=== PATIENT | male | born 1955 | race Caucasian/White ===

== ENCOUNTER 2017-10-24 14:30 | Emergency (ER) | payer SELFPAY ==
--- NOTE | 2017-10-24 15:11 | RAD REPORT ---
EXAM DESCRIPTION: CT - Ct Stroke Brain Wo Cont - 10/24/2017 3:05 pm CLINICAL HISTORY: CVA, acute onset numbness and weakness CLINICAL HISTORY: None. TECHNIQUE: Axial 5 millimeter thick images of the head were obtained without IV contrast. All CT scans are performed using dose optimization technique as appropriate and may include automated exposure control or mA/KV adjustment according to patient size. FINDINGS: No intracranial hemorrhage, mass, or cerebral edema. No cortical edema or sulcal effacemen t. No acute cortical based infarction identified. Atrophy and chronic ischemic changes are mild. Vent ricular size is in proportion to volume loss. No extra-axial fluid collections. Hernandez matter-white ma tter differentiation is preserved. Visualized portions of the mastoid air cells, paranasal sinuses, and orbits are unremarkable. Findings telephoned to doctor Saab 1505 hours. IMPRESSION: No CT evidence of acute intracranial process. Mild atrophy and chronic ischemic change.
[2017-10-24] MEDS ORDERED: ASPIRIN 81 MG CHEWABLE TABLET ONE (15:37)
[2017-10-24] MEDS ORDERED: LABETALOL 20 MG/4ML SYRINGE IV ONE (15:37)
[2017-10-24] MEDS ORDERED: CLOPIDOGREL 75 MG TABLET ONE (15:37)
[2017-10-24 15:38] LABS: Absolute Lymphocytes (CBC) 2.3 K/uL (0.7-4.9); Absolute Monocytes 0.6 K/uL (0.1-1.3); Basophils % 0.7 % (0-1.3); Eosinophils % 2.7 % (0-4.4); Lymphocytes % 31.8 % (15.3-44.8); MCH 34.9 pg (27.0-35.0); MCV 99.2 fL (80-100); MPV 8.6 fL (7.6-11.3); RBC Red Blood Cell Count 4.03 M/uL (4.33-5.43)
[2017-10-24 15:40] LABS: Protime INR 0.91
[2017-10-24 15:52] LABS: Magnesium 1.9 mg/dL (1.8-2.4); Potassium 4.3 mmol/L (3.5-5.1)
--- NOTE | 2017-10-24 16:56 | EDPHYS ---
Physician Documentation [facility] Name: Robbie Marquez Age: 62 yrs Sex: Male : 1955 Arrival Date: 10/24/2017 Time: 14:34 Bed 5 Private MD: Out, [facility] ED Physician Blaise Saab HPI: 10/24 14:57 This 62 yrs old Male presents to ER via Wheelchair with complaints of Blood jr8 Pressure Problem, Numbness. 14:57 The patient presents to the emergency department with paresthesias of the right upper jr8 extremity, right side of the face. Onset: The symptoms/episode began/occurred acutely, today, at 12:00. Context: occurred at work. Associated signs and symptoms: The patient has no apparent associated signs or symptoms. Severity of symptoms: At their worst the symptoms were mild in the emergency department the symptoms have resolved. Patient's baseline: Neuro: alert and fully oriented, Motor: no deficits, Ambulation: walks without assistance, Speech: normal. Current symptoms: Currently, the patient is not experiencing any symptoms. The patient has not experienced similar symptoms in the past. The patient has not recently seen a physician. Patient stated that at 12:00pm today had numbness to right face and right arm. Happened multiple times. Was seen by EMS but declined transfer. Came to ED POV after the third time it happened. Currently asymptomatic with complete resolution of symptoms. Historical: - Allergies: 15:05 Levaquin; sv - PMHx: 15:05 Kidney stones; sv - PSHx: 15:05 None; sv - Immunization history:: Flu vaccine is up to date. - Social history:: Smoking status: Patient uses tobacco products, smokes 1.5 packs per day. - Ebola Screening: : Patient denies travel to an Ebola-affected area in the 21 days before illness onset. ROS: 14:57 Eyes: Negative for injury, pain, redness, and discharge, ENT: Negative for injury, jr8 pain, and discharge, Neck: Negative for injury, pain, and swelling, Cardiovascular: Negative for chest pain, palpitations, and edema, Respiratory: Negative for shortness of breath, cough, wheezing, and pleuritic chest pain, Abdomen/GI: Negative for abdominal pain, nausea, vomiting, diarrhea, and constipation, Back: Negative for injury and pain, MS/Extremity: Negative for injury and deformity, Skin: Negative for injury, rash, and discoloration. 14:57 Neuro: Positive for numbness, of the face and right arm, Negative for altered mental status, dizziness, gait disturbance, headache, hearing loss, loss of consciousness, seizure activity, speech changes, syncope, near syncope, tinnitus, tremor, visual changes, weakness. Exam: 14:57 Eyes: Pupils equal round and reactive to light, extra-ocular motions intact. Lids and jr8 lashes normal. Conjunctiva and sclera are non-icteric and not injected. Cornea within normal limits. Periorbital areas with no swelling, redness, or edema. ENT: Nares patent. No nasal discharge, no septal abnormalities noted. Tympanic membranes are normal and external auditory canals are clear. Oropharynx with no redness, swelling, or masses, exudates, or evidence of obstruction, uvula midline. Mucous membranes moist. Neck: Trachea midline, no thyromegaly or masses palpated, and no cervical lymphadenopathy. Supple, full range of motion without nuchal rigidity, or vertebral point tenderness. No Meningismus. Cardiovascular: Regular rate and rhythm with a normal S1 and S2. No gallops, murmurs, or rubs. Normal PMI, no JVD. No pulse deficits. Respiratory: Lungs have equal breath sounds bilaterally, clear to auscultation and percussion. No rales, rhonchi or wheezes noted. No increased work of breathing, no retractions or nasal flaring. Abdomen/GI: Soft, non-tender, with normal bowel sounds. No distension or tympany. No guarding or rebound. No evidence of tenderness throughout. Back: No spinal tenderness. No costovertebral tenderness. Full range of motion. Skin: Warm, dry with normal turgor. Normal color with no rashes, no lesions, and no evidence of cellulitis. MS/ Extremity: Pulses equal, no cyanosis. Neurovascular intact. Full, normal range of motion. Neuro: Awake and alert, GCS 15, oriented to person, place, time, and situation. Cranial nerves II-XII grossly intact. Motor strength 5/5 in all extremities. Sensory grossly intact. Cerebellar exam normal. Normal gait. Vital Signs: 15:27 BP 189 / 100; Pulse 101; Resp 20; Pulse Ox 96% on R/A; Weight 117.93 kg (R); Height 5 aj1 ft. 9 in. (175.26 cm) (R); Pain 0/10; 15:53 BP 157 / 86; Pulse 79; Resp 18; Pulse Ox 99% ; aj1 16:55 BP 159 / 83; Pulse 79; Resp 20; Pulse Ox 99% on R/A; aj1 17:48 BP 166 / 82; Pulse 82; Resp 18; Pulse Ox 99% ; aj1 15:27 Body Mass Index 38.39 (117.93 kg, 175.26 cm) aj NIH Stroke Scale Scores: 14:57 NIHSS Score: 0 jr8 15:04 NIHSS Score: 0 aj MDM: 15:02 Patient medically screened. [facility] 15:31 ED course: No tPA indicated as symptoms are completely resolved. Most likely TIA at [facility] this time vs hypertensive crisis . 16:51 Data reviewed: vital signs, nurses notes, lab test result(s), EKG, radiologic studies, [facility] CT scan, plain films, and as a result, I will discharge patient. Data interpreted: Pulse oximetry: on room air is 99 %. Interpretation: normal. Counseling: I had a detailed discussion with the patient and/or guardian regarding: the historical points, exam findings, and any diagnostic results supporting the discharge/admit diagnosis, lab results, radiology results, the need for outpatient follow up, a veterinarian small animal, a neurologist, to return to the emergency department if symptoms worsen or persist or if there are any questions or concerns that arise at home. ED course: Patient remains asymptomatic while in ED. No neurology on today. Offered to transfer for neurologic evaluation for suspected TIA. Patient wants to go home despite risks. Will put patient back on statin along with Plavix and aspirin daily. Will f/u with neurology after the weekend. Strict return precautions to come back if symptoms occur again. Patient understood and would follow instructions . 10/24 15:13 Order name: Troponin (emerg Dept Use Only); Complete Time: 16:01 10/24 15:13 Order name: Magnesium; Complete Time: 15:53 10/24 15:13 Order name: Basic Metabolic Panel; Complete Time: 15:53 10/24 15:13 Order name: CBC with Diff; Complete Time: 15:53 [facility] 10/24 15:13 Order name: Protime (+inr); Complete Time: 15:53 10/24 15:13 Order name: Ptt, Activated; Complete Time: 15:53 10/24 15:01 Order name: CT Stroke Brain w/o Contrast; Complete Time: 15:27 10/24 15:13 Order name: Stroke CXR 1 View; Complete Time: 17:07 10/24 15:13 Order name: EKG; Complete Time: 15:13 10/24 15:13 Order name: Accucheck; Complete Time: 15:50 10/24 15:13 Order name: Cardiac monitoring; Complete Time: 15:50 10/24 15:13 Order name: EKG - Nurse/Tech; Complete Time: 15:50 10/24 15:13 Order name: IV Saline Lock; Complete Time: 15:50 10/24 15:13 Order name: Labs collected and sent; Complete Time: 15:51 10/24 15:13 Order name: NPO; Complete Time: 15:51 10/24 15:13 Order name: O2 Per Protocol; Complete Time: 15:51 10/24 15:13 Order name: O2 Sat Monitoring; Complete Time: 15:51 10/24 15:13 Order name: Stroke Swallow Screen; Complete Time: 15:51 Administered Medications: 15:49 Drug: Aspirin Chewable Tablet 324 mg Route: PO; aj1 17:10 Follow up: Response: No adverse reaction aj1 15:49 Drug: PlaVIX 75 mg Route: PO; aj1 17:10 Follow up: Response: No adverse reaction aj1 15:49 CANCELLED (Duplicate Order): Labetalol 10 mg IVP once over 2 mins aj1 15:50 Drug: foLIC Acid 1 mg Route: IVPB; Site: right antecubital; aj1 17:10 Follow up: Response: No adverse reaction aj1 17:49 Follow up: IV Status: Completed infusion aj1 15:50 Drug: Labetalol 10 mg {Note: BP 177/99 HR 88.} Route: IVP; Infused Over: 2 mins; Site: aj right antecubital; 17:11 Follow up: Response: No adverse reaction aj1 16:50 CANCELLED (Physician Discretion): Simvastatin 40 mg PO once 8 17:49 Drug: Atorvastatin 40 mg Route: PO; aj1 17:49 Follow up: Response: No adverse reaction aj1 Disposition: 10/25 06:48 Co-signature as Attending Physician, Blaise Saab MD I agree with the assessment and laurie plan of care. Disposition: 10/24/17 16:55 Discharged to Home. Impression: Transient cerebral ischemic attack, unspecified, Hypertensive Emergency . - Condition is Stable. - Discharge Instructions: Stroke Prevention, Transient Ischemic Attack, Aspirin and Your Heart. - Prescriptions for atorvastatin 40 mg Oral tablet - take 1 tablet by ORAL route once daily; 30 tablet. Plavix 75 mg Oral Tablet - take 1 tablet by ORAL route once daily; 30 tablet. - Medication Reconciliation Form, Thank You Letter, Antibiotic Education, Prescription Opioid Use form. - Follow up: Donell Logan MD; When: 2 - 3 days; Reason: Recheck today's complaints, Continuance of care, Re-evaluation by your physician. - Problem is new. - Symptoms are resolved. - Notes: Once daily 81 mg aspirin NIH Stroke Scale - NIH Stroke Score Date: 10/24/2017 Time: 14:57 Total Score = 0 1a. Level of Consciousness (LOC) - 0(Alert) 1b. Level of Consciousness (LOC) (Year \T\ Age) - 0(Both) 1c. LOC Commands (Open \T\ Closes Eyes/Ship Boat Or Barge Mate) - 0(Both) 2. Best Gaze (Lateral Gaze Paresis) - 0(Normal) 3. Visual Field Loss - 0(No visual loss) 4. Facial Palsy - 0(Normal) 5a. Left Arm: Motor (10-second hold) - 0(No drift) 5b. Right Arm: Motor (10-second hold) - 0(No drift) 6a. Left Leg: Motor (5-second hold - always test supine) - 0(No drift) 6b. Right Leg: Motor (5-second hold - always test supine) - 0(No drift) 7. Limb Ataxia (finger/nose \T\ heel/buckner - test with eyes open) - 0(Absent) 8. Sensory Loss (pinprick arms/legs/face) - 0(Normal) 9. Best Language: Aphasia (description/naming/reading) - 0(No aphasia) 10. Dysarthria (speech clarity - read or repeat words) - 0(Normal) 11. Extinction and Inattention (visual/tactile/auditory/spatial/personal) - 0(No abnormality) Initials: jr8 NIH Stroke Scale - NIH Stroke Score Date: 10/24/2017 Time: 15:04 Total Score = 0 1a. Level of Consciousness (LOC) - 0(Alert) 1b. Level of Consciousness (LOC) (Year \T\ Age) - 0(Both) 1c. LOC Commands (Open \T\ Closes Eyes/Ship Boat Or Barge Mate) - 0(Both) 2. Best Gaze (Lateral Gaze Paresis) - 0(Normal) 3. Visual Field Loss - 0(No visual loss) 4. Facial Palsy - 0(Normal) 5a. Left Arm: Motor (10-second hold) - 0(No drift) 5b. Right Arm: Motor (10-second hold) - 0(No drift) 6a. Left Leg: Motor (5-second hold - always test supine) - 0(No drift) 6b. Right Leg: Motor (5-second hold - always test supine) - 0(No drift) 7. Limb Ataxia (finger/nose \T\ heel/buckner - test with eyes open) - 0(Absent) 8. Sensory Loss (pinprick arms/legs/face) - 0(Normal) 9. Best Language: Aphasia (description/naming/reading) - 0(No aphasia) 10. Dysarthria (speech clarity - read or repeat words) - 0(Normal) 11. Extinction and Inattention (visual/tactile/auditory/spatial/personal) - 0(No abnormality) Initials: ajDeonte Signatures: Dispatcher [employer] EDValentina Leavitt RN RN ajKatt Guzman RN RN sv Anderson, Corey, MD MD cha Roszak, Josh, PA PA jr8 Corrections: (The following items were deleted from the chart) 10/24 15:49 15:49 Labetalol 10 mg IVP once over 2 mins ordered. aj1 aj1 16:50 16:49 Simvastatin 40 mg PO once ordered. jr8 jr8 17:50 16:55 10/24/2017 16:55 Discharged to Home. Impression: Transient cerebral aj1 ischemic attack, unspecified; Hypertensive Emergency . Condition is Stable. Forms are Medication Reconciliation Form, Thank You Letter, Antibiotic Education, Prescription Opioid Use. Follow up: Donell Logan; When: 2 - 3 days; Reason: Recheck today's complaints, Continuance of care, Re-evaluation by your physician. Problem is new. Symptoms are resolved. jr8
--- NOTE | 2017-10-24 16:56 | ER ---
Nurse's Notes [facility] Name: Robbie Marquez Age: 62 yrs Sex: Male : 1955 Arrival Date: 10/24/2017 Time: 14:34 Bed 5 Private MD: Out, [facility] Diagnosis: Transient cerebral ischemic attack, unspecified;Hypertensive Emergency Presentation: 10/24 14:55 Transition of care: patient was not received from another setting of care. Onset of sv symptoms was October 24, 2017 at 12:35. Care prior to arrival: None. 14:55 Method Of Arrival: Wheelchair sv 14:55 Acuity: NOHEMI 2 sv 14:55 Presenting complaint: Patient states: was at work and started having numbness to right sv upper and lower lips and right palm and fingers at 1235. Pt went to his work clinic and said his BP was elevated and BGL. Pt refused ambulance on scene. Pt reports 1st time lasted "seconds" and went away and then the numbness returned to the right palm and fingertips only 2 more times. Pt denies dizziness, SOB or headache. Freight Rate Clerk equal bilaterally, no facial droop, tongue midline. 14:57 Note Code Stroke called. sv 16:55 Initial Sepsis Screen: Does the patient meet any 2 criteria? No. Patient's initial aj1 sepsis screen is negative. Does the patient have a suspected source of infection? No. Patient's initial sepsis screen is negative. 16:56 Risk Assessment: Do you want to hurt yourself or someone else? Patient reports no aj1 desire to harm self or others. Historical: - Allergies: 15:05 Levaquin; sv - PMHx: 15:05 Kidney stones; sv - PSHx: 15:05 None; sv - Immunization history:: Flu vaccine is up to date. - Social history:: Smoking status: Patient uses tobacco products, smokes 1.5 packs per day. - Ebola Screening: : Patient denies travel to an Ebola-affected area in the 21 days before illness onset. Screenin:12 Patient has been NPO before screening. The patient is alert, able to follow commands. aj1 The patient does not exhibit slurred or garbled speech The patient is not exhibiting difficulty speaking. The patient does not exhibit difficulty understanding words. The patient is able to swallow own secretions with no drooling or need for suction. Patient tolerated one teaspoon of water. No drooling, immediate coughing, gurgling, or clearing of the throat was noted. The patient tolerated 90mL of water. No drooling, immediate coughing, gurgling, or clearing of the throat was noted. The patient passed the bedside swallow screening. Oral medications may be given as ordered. Contact Physician for further diet orders. Provider notified of bedside swallow screening results: Ryne VARGHESE. 15:27 Abuse screen: Denies threats or abuse. Denies injuries from another. Nutritional aj1 screening: No deficits noted. Tuberculosis screening: No symptoms or risk factors identified. 16:56 Fall Risk None identified. aj1 Assessment: 14:57 Reassessment: Code stroke called by Surekha Ruffin RN. aj1 14:58 Reassessment: Patient taken to CT escorted by Surekha Hull RN. aj1 15:04 Reassessment: Patient returned to room. HALIMA Hilton at bedside to evaluate patient. aj1 15:08 Reassessment: FSBS 178. aj1 15:12 Reassessment: Bedside swallow screen performed, patient passed bedside swallow screen. aj1 15:15 Reassessment: CXR at bedside. aj1 15:27 General: Appears in no apparent distress. comfortable, Behavior is calm, cooperative, aj1 appropriate for age. Pain: Denies pain. Neuro: Level of Consciousness is awake, alert, obeys commands, Oriented to person, place, time, situation, Freight Rate Clerk are equal bilaterally Moves all extremities. Full function Speech is slurred, Facial symmetry appears normal, Pupils are PERRLA, Intact Reports numbness paresthesias in right hand and mouth that has now resolved. Cardiovascular: Patient's skin is warm and dry. Edema is 3+ to left midcalf, left ankle, left foot, left toes, right midcalf, right ankle, right foot and right toes Rhythm is regular. Respiratory: Airway is patent Respiratory effort is even, unlabored, Respiratory pattern is regular, symmetrical. GI: No signs and/or symptoms were reported involving the gastrointestinal system. : No signs and/or symptoms were reported regarding the genitourinary system. EENT: No signs and/or symptoms were reported regarding the EENT system. Derm: Skin is pink, warm \\T\\ dry. normal. Musculoskeletal: Circulation, motion, and sensation intact. 16:30 Reassessment: Patient appears in no apparent distress at this time. No changes from aj1 previously documented assessment. Patient and/or family updated on plan of care and expected duration. Pain level reassessed. Patient is alert, oriented x 3, equal unlabored respirations, skin warm/dry/pink. 17:47 Reassessment: Patient appears in no apparent distress at this time. No changes from aj1 previously documented assessment. Patient and/or family updated on plan of care and expected duration. Pain level reassessed. Patient is alert, oriented x 3, equal unlabored respirations, skin warm/dry/pink. Vital Signs: 15:27 BP 189 / 100; Pulse 101; Resp 20; Pulse Ox 96% on R/A; Weight 117.93 kg (R); Height 5 aj1 ft. 9 in. (175.26 cm) (R); Pain 0/10; 15:53 BP 157 / 86; Pulse 79; Resp 18; Pulse Ox 99% ; aj1 16:55 BP 159 / 83; Pulse 79; Resp 20; Pulse Ox 99% on R/A; aj1 17:48 BP 166 / 82; Pulse 82; Resp 18; Pulse Ox 99% ; aj1 15:27 Body Mass Index 38.39 (117.93 kg, 175.26 cm) aj1 NIH Stroke Scale Scores: 14:57 NIHSS Score: 0 jr8 15:04 NIHSS Score: 0 aj ED Course: 14:34 Patient arrived in ED. sb2 14:35 Out, of Town is Private Physician. sb2 14:55 Arm band placed on right wrist. sv 14:[address] via wheelchair. sv 15:02 Ryne Lloyd PA is PHCP. jr8 15:02 Blaise Saab MD is Attending Physician. jr8 15:05 Triage completed. sv 15:05 CT Stroke Brain w/o Contrast In Process Unspecified. EDMS 15:08 Inserted saline lock: 20 gauge in right antecubital area, using aseptic technique. tw2 Blood collected. 15:16 Valentina Taylor, RN is Primary Nurse. aj1 15:27 Patient has correct armband on for positive identification. Bed in low position. Call aj1 light in reach. Side rails up X 1. shelter monitor on. Pulse ox on. NIBP on. 15:27 No provider procedures requiring assistance completed. aj1 15:33 Stroke CXR 1 View In Process Unspecified. EDMS 16:54 Donell Logan MD is Referral Physician. jr8 17:48 IV discontinued, intact, bleeding controlled, No redness/swelling at site. Pressure aj1 dressing applied. Administered Medications: 15:49 Drug: Aspirin Chewable Tablet 324 mg Route: PO; aj1 17:10 Follow up: Response: No adverse reaction aj1 15:49 Drug: PlaVIX 75 mg Route: PO; aj1 17:10 Follow up: Response: No adverse reaction aj1 15:49 CANCELLED (Duplicate Order): Labetalol 10 mg IVP once over 2 mins aj1 15:50 Drug: foLIC Acid 1 mg Route: IVPB; Site: right antecubital; aj1 17:10 Follow up: Response: No adverse reaction aj1 17:49 Follow up: IV Status: Completed infusion aj1 15:50 Drug: Labetalol 10 mg {Note: BP 177/99 HR 88.} Route: IVP; Infused Over: 2 mins; Site: aj1 right antecubital; 17:11 Follow up: Response: No adverse reaction aj1 16:50 CANCELLED (Physician Discretion): Simvastatin 40 mg PO once jr8 17:49 Drug: Atorvastatin 40 mg Route: PO; aj1 17:49 Follow up: Response: No adverse reaction aj1 Outcome: 16:55 Discharge ordered by . jr8 17:48 Discharged to home ambulatory. aj1 17:48 Condition: good 17:48 Discharge instructions given to patient, Instructed on discharge instructions, follow up and referral plans. medication usage, Demonstrated understanding of instructions, follow-up care, medications, Prescriptions given X 2. 17:50 Patient left the ED. aj1 NIH Stroke Scale - NIH Stroke Score Date: 10/24/2017 Time: 14:57 Total Score = 0 1a. Level of Consciousness (LOC) - 0(Alert) 1b. Level of Consciousness (LOC) (Year \\T\\ Age) - 0(Both) 1c. LOC Commands (Open \\T\\ Closes Eyes/Pupil Personnel Services Director) - 0(Both) 2. Best Gaze (Lateral Gaze Paresis) - 0(Normal) 3. Visual Field Loss - 0(No visual loss) 4. Facial Palsy - 0(Normal) 5a. Left Arm: Motor (10-second hold) - 0(No drift) 5b. Right Arm: Motor (10-second hold) - 0(No drift) 6a. Left Leg: Motor (5-second hold - always test supine) - 0(No drift) 6b. Right Leg: Motor (5-second hold - always test supine) - 0(No drift) 7. Limb Ataxia (finger/nose \\T\\ heel/buckner - test with eyes open) - 0(Absent) 8. Sensory Loss (pinprick arms/legs/face) - 0(Normal) 9. Best Language: Aphasia (description/naming/reading) - 0(No aphasia) 10. Dysarthria (speech clarity - read or repeat words) - 0(Normal) 11. Extinction and Inattention (visual/tactile/auditory/spatial/personal) - 0(No abnormality) Initials: jr8 NIH Stroke Scale - NIH Stroke Score Date: 10/24/2017 Time: 15:04 Total Score = 0 1a. Level of Consciousness (LOC) - 0(Alert) 1b. Level of Consciousness (LOC) (Year \\T\\ Age) - 0(Both) 1c. LOC Commands (Open \\T\\ Closes Eyes/Pupil Personnel Services Director) - 0(Both) 2. Best Gaze (Lateral Gaze Paresis) - 0(Normal) 3. Visual Field Loss - 0(No visual loss) 4. Facial Palsy - 0(Normal) 5a. Left Arm: Motor (10-second hold) - 0(No drift) 5b. Right Arm: Motor (10-second hold) - 0(No drift) 6a. Left Leg: Motor (5-second hold - always test supine) - 0(No drift) 6b. Right Leg: Motor (5-second hold - always test supine) - 0(No drift) 7. Limb Ataxia (finger/nose \\T\\ heel/buckner - test with eyes open) - 0(Absent) 8. Sensory Loss (pinprick arms/legs/face) - 0(Normal) 9. Best Language: Aphasia (description/naming/reading) - 0(No aphasia) 10. Dysarthria (speech clarity - read or repeat words) - 0(Normal) 11. Extinction and Inattention (visual/tactile/auditory/spatial/personal) - 0(No abnormality) Initials: aj1 Signatures: Dispatcher [employer] EDValentina Leavitt RN RN aj1 Katt Ruffin RN RN sv Ryne Lloyd PA PA jr8 Ila Lopez RN RN tw2 Ellie Hutton 2 Corrections: (The following items were deleted from the chart) 15:07 14:55 Presenting complaint: Patient states: was at work and started having sv numbness to right upper and lower lips and right palm and fingers at 1235. Pt went to his work clinic and said his BP was elevated and BGL. Pt refused ambulance on scene. Pt reports 1st time lasted "seconds" and went away and then the numbness returned to the right palm and fingertips only 2 more times. Pt denies dizziness, SOB or headache. sv 15:23 15:22 Reassessment: Code stroke called by Surekha Ruffin, RN aj1 aj1
[2017-10-24] MEDS ORDERED: ATORVASTATIN 20 MG TAB ONE (17:04)
--- NOTE | 2017-10-24 17:06 | RAD REPORT ---
EXAM DESCRIPTION: RAD - Chest Single View - 10/24/2017 3:34 pm CLINICAL HISTORY: TIA, shortness of breath COMPARISON: None. TECHNIQUE: AP portable chest image was obtained 1514 hours . FINDINGS: Lungs are clear. Heart and vasculature are normal. No measurable pleural effusion and no p neumothorax. No gross bony abnormality seen. No acute aortic findings suspected. IMPRESSION: No acute cardiopulmonary process.
--- NOTE | 2017-10-25 09:30 | EKG ---
Test Date: 2017-10-24 Test Time: 15:32:17 Sports Medicine Trainer: MERCEDEZ MEASUREMENT RESULTS: Intervals: Rate: 90 DE: 100 QRSD: 82 QT: 350 QTc: 428 [place]: P: 98 DE: 100 QRS: 66 T: 57 INTERPRETIVE STATEMENTS: Sinus rhythm with short DE Otherwise normal ECG No previous ECG available for comparison Electronically Signed On 10-25-17 09:28:06 CDT by Carter Mathur
== END 2017-10-24 17:50 | disposition home or self-care (01) ==
LOC: ER 14:30
DX: G45.9 Transient cerebral ischemic attack, unspecified (principal); I16.1 Hypertensive emergency; F17.210 Nicotine dependence, cigarettes, uncomplicated; Z88.1 Allergy status to other antibiotic agents
CPT/HCPCS: 36415; 70450; 71045; 80048; 82962; 83735; 84484; 85025; 85610; 85730; 93005; 96365; 96366; 96375; 99285

== ENCOUNTER 2018-03-18 06:49 | Observation (INO) | payer BC ==
[2018-03-18] MEDS ORDERED: LEVALBUTEROL 1.25 MG/3 ML NEB ONE ×2 (07:15→12:55)
[2018-03-18] MEDS ORDERED: METHYLPREDNISOLONE 125 MG INJ ONE (07:15)
[2018-03-18 07:33] LABS: Absolute Lymphocytes (CBC) 1.5 K/uL (0.7-4.9); Absolute Monocytes 0.6 K/uL (0.1-1.3); Absolute Neutrophil 4.5 K/uL (1.8-8.0); Basophils % 0.8 % (0-1.3); Eosinophils % 3.7 % (0-4.4); Hematocrit 35.7 % (39.6-49.0); Lymphocytes % 21.3 % (15.3-44.8); MCH 34.3 pg (27.0-35.0); Monocytes % 8.7 % (3.3-12.3); RBC Red Blood Cell Count 3.56 M/uL (4.33-5.43)
[2018-03-18 08:09] LABS: ALT/SGPT 57 U/L (12-78); AST/SGOT 53 U/L (15-37); Alkaline Phosphatase 180 U/L (45-117); BUN Blood Urea Nitrogen 44 mg/dL (7-18); Bicarbonate 29 mmol/L (21-32); Bilirubin Direct < 0.1 mg/dL (0-0.2); Bilirubin Total 0.2 mg/dL (0.2-1.0); Glucose Level 86 mg/dL (74-106); Magnesium 2.3 mg/dL (1.8-2.4); NT PRO-BNP 2069 pg/mL (<125); Potassium 4.7 mmol/L (3.5-5.1); Protein, Total 6.8 g/dL (6.4-8.2); Sodium Level 145 mmol/L (136-145); Troponin (Emerg Dept Use Only) < 0.02 ng/mL (0.0-0.045)
[2018-03-18] MEDS ORDERED: IPRATROPIUM BROM 0.5MG/2.5ML ONE ×2 (08:18→12:55)
[2018-03-18] MEDS ORDERED: MAGNESIUM SULFATE 1 gm IVPB 1 GM/100 ML BAG IV ONE (08:18)
--- NOTE | 2018-03-18 08:28 | ER ---
Nurse's Notes [facility] Name: Robbie Marquez Age: 62 yrs Sex: Male : 1955 Arrival Date: 03/18/2018 Time: 06:50 Bed 7 Private MD: Tyler Gandhi E Diagnosis: Chronic obstructive pulmonary disease with (acute) exacerbation;Edema, unspecified;Hypoxemia;anasarca Presentation: 03/18 07:08 Presenting complaint: Patient states: he is having increasingly worse difficulty bb breathing x 2 weeks with new onset of swelling to lower extremities pt has had COPD x 10 years and this is the first time he came to the ED for it. Transition of care: patient was not received from another setting of care. Onset of symptoms was March 07, 2018. Risk Assessment: Do you want to hurt yourself or someone else? Patient reports no desire to harm self or others. Initial Sepsis Screen: Does the patient meet any 2 criteria? No. Patient's initial sepsis screen is negative. Does the patient have a suspected source of infection? No. Patient's initial sepsis screen is negative. Care prior to arrival: None. 07:08 Method Of Arrival: Ambulatory bb 07:08 Acuity: NOHEMI 2 bb Historical: - Allergies: 07:13 Levaquin; bb - Home Meds: 07:13 doxazosin 2 mg oral tab 1 tab once daily [Active]; Janumet XR 50-1,000 mg oral TM24 2 bb tabs once daily [Active]; atorvastatin 20 mg oral tab 1 tab once daily [Active]; aspirin 81 mg Oral chew 1 tab once daily [Active]; Stiolto Respimat 2.5-2.5 mcg/actuation inhalation mist 2 puffs once daily [Active]; Bystolic 10 mg oral tab 1 tab once daily [Active]; losartan-hydrochlorothiazide 100-25 mg oral tab 1 tab once daily [Active]; - PMHx: 07:13 Kidney stones; COPD; Hypertension; Hyperlipidemia; TIA; Diabetes - NIDDM; bb - PSHx: 07:13 None; bb - Immunization history:: Adult Immunizations up to date. - Social history:: Smoking status: Patient uses tobacco products, smokes one-half pack cigarettes per day, Patient uses alcohol, on a daily basis. Patient/guardian denies using street drugs. - Family history:: not pertinent. - Ebola Screening: : No symptoms or risks identified at this time. - Hospitalizations: : No recent hospitalization is reported. Screenin:00 Abuse screen: Denies threats or abuse. Denies injuries from another. Nutritional sv screening: No deficits noted. Tuberculosis screening: No symptoms or risk factors identified. Fall Risk None identified. Assessment: 07:00 General: Appears uncomfortable, obese, well developed, Behavior is calm, cooperative, sv appropriate for age. General: Reports daily ETOH use, pt reports that he drinks 1 glass of liquor daily and recently cut back on his drinking since he had his TIA. Pain: Denies pain. Neuro: Level of Consciousness is awake, alert, obeys commands, Oriented to person, place, time, situation, Moves all extremities. Speech is normal. Cardiovascular: Heart tones S1 S2 present Patient's skin is warm and dry. Pulses are 2+ in right radial artery, right dorsalis pedis artery, left radial artery and left dorsalis pedis artery Edema is 2+ to left midcalf, left ankle, left foot, right midcalf, right ankle and right foot pitting to left midcalf, left ankle, left foot, right midcalf, right ankle and right foot Rhythm is sinus rhythm. Respiratory: Reports shortness of breath at rest on exertion for about 2 weeks labored breathing Airway is patent Respiratory effort is even, labored, Respiratory pattern is symmetrical, tachypnea Breath sounds are diminished in left posterior lower lobe, right posterior middle lobe and right posterior lower lobe Breath sounds with wheezes bilaterally. the patient has moderate shortness of breath. GI: Abdomen is obese, noted to have ascites. : Reports normal urination but urinates every 2 hours. Derm: Skin is pink, warm \T\ dry. Musculoskeletal: Range of motion: intact in all extremities. 07:25 Reassessment: Patient appears in no apparent distress at this time. Patient and/or sv family updated on plan of care and expected duration. Pain level reassessed. Patient is alert, oriented x 3, equal unlabored respirations, skin warm/dry/pink. Respiratory: Reports cough that is non-productive, Breath sounds with wheezes bilaterally. the patient has mild shortness of breath. 08:14 Reassessment: Patient appears in no apparent distress at this time. Patient and/or sv family updated on plan of care and expected duration. Pain level reassessed. Patient is alert, oriented x 3, equal unlabored respirations, skin warm/dry/pink. Mild improvement on wheezing. 10:07 Reassessment: Patient appears in no apparent distress at this time. Patient and/or sv family updated on plan of care and expected duration. Pain level reassessed. Patient is alert, oriented x 3, equal unlabored respirations, skin warm/dry/pink. Patient states symptoms have improved. Vital Signs: 07:13 BP 171 / 119; Pulse 82; Resp 20 S; Temp 97.7(O); Pulse Ox 88% on R/A; Weight 113.4 kg bb (R); Height 5 ft. 9 in. (175.26 cm) (R); Pain 0/10; 07:13 Pulse Ox 96% on 2 lpm NC; bb 07:57 BP 164 / 91; Pulse 92; Resp 22; Pulse Ox 96% on 2 lpm NC; sv 08:51 BP 176 / 85; Pulse 83; Resp 16; Pulse Ox 97% on 2 lpm NC; sv 10:06 BP 158 / 83; Pulse 82; Resp 18; Pulse Ox 97% on 2 lpm NC; sv 07:13 Body Mass Index 36.92 (113.40 kg, 175.26 cm) bb ED Course: 06:50 Patient arrived in ED. es 06:50 Tyler Gandhi MD is Private Physician. es 06:59 Jagdeep Rodriguez MD is Attending Physician. rn 07:00 Patient has correct armband on for positive identification. Placed in gown. Bed in low sv position. Call light in reach. secured entrance monitor on. Pulse ox on. NIBP on. Door closed. Head of bed elevated. Offered blanket to pt but refused at this time.. 07:00 Initial lab(s) drawn, by me, sent to lab. First set of blood cultures drawn by me. sv Inserted saline lock: 20 gauge in left forearm, using aseptic technique. Blood collected. Flushed left forearm with 5 ml normal saline. 07:05 aKtt Ruffin, DANIELLA is Primary Nurse. sv 07:10 Triage completed. bb 07:13 Arm band placed on Patient placed in an exam room, on a stretcher, on oxygen. bb 07:15 Second set of blood cultures drawn by me. sv 07:16 X-ray completed. Portable x-ray completed in exam room. Patient tolerated procedure jb2 well. 07:19 XRAY CXR (1 view) In Process Unspecified. EDMS 07:51 Awaiting lab results, Awaiting radiology results. sv 07:59 EKG done, by neurology tech. reviewed by Jagdeep Rodriguez MD. at1 08:26 Violet Everett MD is Hospitalizing Provider. rn 10:07 No provider procedures requiring assistance completed. Patient admitted, IV remains in sv place. intact. Administered Medications: 07:10 Drug: Xopenex (3) 1.25 mg Route: Inhalation; sv 07:24 Drug: SOLU-Medrol 125 mg Route: IVP; Site: left forearm; sv 07:49 Follow up: Response: No adverse reaction sv 08:14 Drug: AtroVENT Aerosol 0.5 mg Route: Inhalation; sv 08:14 Drug: Magnesium Sulfate 1 grams Route: IVPB; Infused Over: 1 hrs; Site: left forearm; sv 09:11 Follow up: Response: No adverse reaction; IV Status: Completed infusion; IV Intake: sv 100ml Intake: 09:11 IV: 100ml; Total: 100ml. sv Outcome: 08:27 Decision to Hospitalize by Provider. rn 10:17 Admitted to Tele accompanied by tech, via wheelchair, room 217, with oxygen, with sv chart, Report called to Dayanna RN 10:17 Condition: stable 10:17 Instructed on the need for admit. 10:30 Patient left the ED. sv Signatures: Dispatcher [employer] Katt Wiseman RN RN sv Salyer, Edna es Buechter, Jesse jb2 Rhiannon Silvestre RN RN bb Nieto, Roman, MD MD rn Gonzales, Amanda, content strategy lead EKG Tat1
--- NOTE | 2018-03-18 08:28 | EDPHYS ---
Physician Documentation [facility] Name: Robbie Marquez Age: 62 yrs Sex: Male : 1955 Arrival Date: 03/18/2018 Time: 06:50 Bed 7 Private MD: Tyler Gandhi E ED Physician Jagdeep Rodriguez HPI: 03/18 07:14 This 62 yrs old Male presents to ER via Ambulatory with complaints of rn Breathing Difficulty. 07:14 The patient has shortness of breath at rest, with light activity. Onset: The rn symptoms/episode began/occurred 1 week(s) ago. Duration: The symptoms are intermittent. The patient's shortness of breath is aggravated by nothing, is alleviated by nothing. Severity of symptoms: At their worst the symptoms were moderate in the emergency department the symptoms are unchanged. The patient has experienced similar episodes in the past. The patient has not recently seen a physician. Reports 1-2 weeks of increased sob and RICHARDS, + COPD, also reports increased swelling of legs and trouble sleeping flat. . Historical: - Allergies: 07:13 Levaquin; bb - Home Meds: 07:13 doxazosin 2 mg oral tab 1 tab once daily [Active]; Janumet XR 50-1,000 mg oral TM24 2 bb tabs once daily [Active]; atorvastatin 20 mg oral tab 1 tab once daily [Active]; aspirin 81 mg Oral chew 1 tab once daily [Active]; Stiolto Respimat 2.5-2.5 mcg/actuation inhalation mist 2 puffs once daily [Active]; Bystolic 10 mg oral tab 1 tab once daily [Active]; losartan-hydrochlorothiazide 100-25 mg oral tab 1 tab once daily [Active]; - PMHx: 07:13 Kidney stones; COPD; Hypertension; Hyperlipidemia; TIA; Diabetes - NIDDM; bb - PSHx: 07:13 None; bb - Immunization history:: Adult Immunizations up to date. - Social history:: Smoking status: Patient uses tobacco products, smokes one-half pack cigarettes per day, Patient uses alcohol, on a daily basis. Patient/guardian denies using street drugs. - Family history:: not pertinent. - Ebola Screening: : No symptoms or risks identified at this time. - Hospitalizations: : No recent hospitalization is reported. ROS: 07:14 Constitutional: Negative for fever, chills, and weight loss, Eyes: Negative for injury, rn pain, redness, and discharge, Neck: Negative for injury, pain, and swelling, Cardiovascular: Negative for chest pain, palpitations Respiratory: Negative for pleuritic chest pain Abdomen/GI: Negative for abdominal pain, nausea, vomiting, diarrhea, and constipation, MS/Extremity: Negative for injury and deformity, Skin: Negative for injury, rash, and discoloration, Neuro: Negative for headache, weakness, numbness, tingling, and seizure. Exam: 07:14 Constitutional: This is a well developed, well nourished patient who is awake, alert, rn mild tachypnea Head/Face: Normocephalic, atraumatic. ENT: dry MM, no stridor Cardiovascular: Regular rate and rhythm. No pulse deficits. Respiratory: + diffuse exp wheezing bilaterally and diminished breath sounds at bases Abdomen/GI: soft, non-tender MS/ Extremity: Pulses equal, no cyanosis. Neurovascular intact. Full, normal range of motion. Equal circumference. 2+ pitting edema bilateral lower ext Neuro: Awake and alert, GCS 15, oriented to person, place, time, and situation. Cranial nerves II-XII grossly intact. Motor strength 5/5 in all extremities. Sensory grossly intact. Vital Signs: 07:13 BP 171 / 119; Pulse 82; Resp 20 S; Temp 97.7(O); Pulse Ox 88% on R/A; Weight 113.4 kg bb (R); Height 5 ft. 9 in. (175.26 cm) (R); Pain 0/10; 07:13 Pulse Ox 96% on 2 lpm NC; bb 07:57 BP 164 / 91; Pulse 92; Resp 22; Pulse Ox 96% on 2 lpm NC; sv 08:51 BP 176 / 85; Pulse 83; Resp 16; Pulse Ox 97% on 2 lpm NC; sv 10:06 BP 158 / 83; Pulse 82; Resp 18; Pulse Ox 97% on 2 lpm NC; sv 07:13 Body Mass Index 36.92 (113.40 kg, 175.26 cm) bb MDM: 06:59 Patient medically screened. rn 08:25 Differential diagnosis: asthma, Bronchitis CHF exacerbation, Chronic Obstructive rn Pulmonary Disease Myocardial Infarction pneumonia, Pneumothorax pulmonary edema, reactive airway disease. Data reviewed: vital signs, nurses notes, lab test result(s), EKG, radiologic studies, plain films, and as a result, I will admit patient. Counseling: I had a detailed discussion with the patient and/or guardian regarding: the historical points, exam findings, and any diagnostic results supporting the discharge/admit diagnosis, lab results, radiology results, the need for further work-up and treatment in the hospital. Response to treatment: the patient's symptoms have mildly improved after treatment, and as a result, I will admit patient. Admission orders: after a detailed discussion of the patient's condition and case, the admit orders are written by me. ED course: Pt with anasarca, COPD exacerbation, needs more work, will admit to Dr. Everett for further care. No known diagnosis of CHF. Also daily drinker with liver changes. . 03/18 07:05 Order name: Blood Culture Adult (2) rn 03/18 07:05 Order name: BMP; Complete Time: 08:13 rn 03/18 07:05 Order name: CBC with Diff; Complete Time: 08:05 rn 03/18 07:05 Order name: Hepatic Function; Complete Time: 08:13 rn 03/18 07:05 Order name: Magnesium; Complete Time: 08:13 rn 03/18 07:05 Order name: NT PRO-BNP; Complete Time: 08:13 rn 03/18 07:05 Order name: Troponin (emerg Dept Use Only); Complete Time: 08:13 rn 03/18 09:18 Order name: Urinalysis EDMS 03/18 09:18 Order name: CBC with Automated Diff EDMS 03/18 09:18 Order name: CBC with Automated Diff EDMS 03/18 09:18 Order name: CBC with Automated Diff EDMS 03/18 09:18 Order name: CBC with Automated Diff EDMS 03/18 09:18 Order name: Comprehensive Metabolic Panel EDMS 03/18 09:18 Order name: Comprehensive Metabolic Panel EDMS 03/18 07:05 Order name: XRAY CXR (1 view); Complete Time: 08:33 rn 03/18 07:05 Order name: EKG; Complete Time: 07:06 rn 03/18 07:05 Order name: Cardiac monitoring; Complete Time: 07:49 rn 03/18 07:05 Order name: EKG - Nurse/Tech; Complete Time: 07:59 rn 03/18 07:05 Order name: IV Saline Lock; Complete Time: 07:50 rn 03/18 07:05 Order name: Labs collected and sent; Complete Time: 07:50 rn 03/18 07:05 Order name: O2 Per Protocol; Complete Time: 07:50 rn 03/18 07:05 Order name: O2 Sat Monitoring; Complete Time: 07:50 rn 03/18 09:18 Order name: Heart Healthy EDOR 03/18 09:18 Order name: Comprehensive Metabolic Panel EDOR 03/18 09:18 Order name: Comprehensive Metabolic Panel EDOR Administered Medications: 07:10 Drug: Xopenex (3) 1.25 mg Route: Inhalation; sv 07:24 Drug: SOLU-Medrol 125 mg Route: IVP; Site: left forearm; sv 07:49 Follow up: Response: No adverse reaction sv 08:14 Drug: AtroVENT Aerosol 0.5 mg Route: Inhalation; sv 08:14 Drug: Magnesium Sulfate 1 grams Route: IVPB; Infused Over: 1 hrs; Site: left forearm; sv 09:11 Follow up: Response: No adverse reaction; IV Status: Completed infusion; IV Intake: sv 100ml Disposition: 03/18/18 08:27 Hospitalization ordered by Violet Everett for Inpatient Admission. Preliminary diagnosis are Chronic obstructive pulmonary disease with (acute) exacerbation, Edema, unspecified, Hypoxemia, anasarca. - Bed requested for Telemetry/MedSurg (Inpatient). - Status is Inpatient Admission. sv - Condition is Stable. - Problem is new. - Symptoms have improved. UTI on Admission? No Signatures: Dispatcher [employer] [facility] Katt Ruffin RN RN sv Woody, Diana, RN RN dw Ballard, Brenda, RN RN bb Nieto, Roman, MD MD rn Botello, Elizabeth eb Corrections: (The following items were deleted from the chart) 08:26 07:14 Constitutional: This is a well developed, well nourished patient who is awake, rn alert, mild tachypnea Head/Face: Normocephalic, atraumatic. ENT: dry MM, no stridor Cardiovascular: Regular rate and rhythm. No pulse deficits. Respiratory: + diffuse exp wheezing bilaterally and diminished breath sounds at bases Abdomen/GI: soft, non-tender MS/ Extremity: Pulses equal, no cyanosis. Neurovascular intact. Full, normal range of motion. Equal circumference. 2+ pitting edema bilateral lower ext Neuro: Awake and alert, GCS 15, oriented to person, place, time, and situation. Cranial nerves II-XII grossly intact. Motor strength 5/5 in all extremities. Sensory grossly intact. rn 08:58 08:27 Hospitalization Ordered by Violet Everett MD for Inpatient Admission. Preliminary eb diagnosis is Chronic obstructive pulmonary disease with (acute) exacerbation; Edema, unspecified; Hypoxemia; anasarca. Bed requested for Telemetry/MedSurg (Inpatient). Status is Inpatient Admission. Condition is Stable. Problem is new. Symptoms have improved. UTI on Admission? No. rn 10:05 08:58 03/18/2018 08:27 Hospitalization Ordered by Violet Everett MD for Inpatient dw Admission. Preliminary diagnosis is Chronic obstructive pulmonary disease with (acute) exacerbation; Edema, unspecified; Hypoxemia; anasarca. Bed requested for Telemetry/MedSurg (Inpatient). Status is Inpatient Admission. Condition is Stable. Problem is new. Symptoms have improved. UTI on Admission? No. eb 10:30 10:05 03/18/2018 08:27 Hospitalization Ordered by Violet Everett MD for Inpatient sv Admission. Preliminary diagnosis is Chronic obstructive pulmonary disease with (acute) exacerbation; Edema, unspecified; Hypoxemia; anasarca. Bed requested for Telemetry/MedSurg (Inpatient). Status is Inpatient Admission. Condition is Stable. Problem is new. Symptoms have improved. UTI on Admission? No. dw
--- NOTE | 2018-03-18 08:31 | RAD REPORT ---
EXAM DESCRIPTION: RAD - Chest Single View - 03/18/2018 7:20 am CLINICAL HISTORY: Dyspnea, progressive difficulty breathing COMPARISON: October 24 TECHNIQUE: AP portable chest image was obtained 0704 hours . FINDINGS: No peripheral mass or consolidation. Body habitus and portable technique accentuate lung b ase findings. Medial retrocardiac left base assessment is very limited. Costophrenic angle blunting i s present in the patient could have minimal pleural fluid. Heart size is normal with no vascular engo rgement. Trachea is midline. No pneumothorax. No acute bony abnormality seen. No acute aortic finding s suspected. IMPRESSION: No acute lung parenchymal process seen. Medial retrocardiac left base assessment is very limited. No vascular engorgement or other findings to suspect failure or volume overload. Costophrenic angle blunting is probably artifact of body habitus and portable technique. Minimal pleu ral fluid is possible.
[2018-03-18] MEDS ORDERED: ACETAMINOPHEN 500 MG TAB PO PRN (09:15)
[2018-03-18] MEDS ORDERED: ONDANSETRON 4 MG (ODT) TAB PO PRN (09:15)
--- NOTE | 2018-03-18 11:28 | EKG ---
Test Date: 2018-03-18 Test Time: 07:59:48 Auto Painter: KEL MEASUREMENT RESULTS: Intervals: Rate: 74 NM: 146 QRSD: 94 QT: 378 QTc: 419 [place]: P: 48 NM: 146 QRS: 55 T: 63 INTERPRETIVE STATEMENTS: Normal sinus rhythm Normal ECG Compared to ECG 10/24/2017 15:32:17 Short NM interval no longer present Electronically Signed On 03-18-18 11:27:40 GARNISHER by Carter Mathur
[2018-03-18] MEDS ORDERED: IPRATROPIUM BROM 0.5MG/2.5ML NEB PRN (12:19)
[2018-03-18] MEDS ORDERED: ALBUTEROL 2.5 MG/3 ML NEB SOL NEB PRN (12:19)
[2018-03-18] MEDS ORDERED: LEVALBUTEROL 0.63 MG/3 ML NEB NEB PRN (12:26)
[2018-03-18] MEDS ORDERED: METOPROLOL TARTRATE 5 MG/5 ML INJ IV STA (12:28)
[2018-03-18] MEDS ORDERED: ARFORMOTEROL TARTRATE 15 MCG/2 ML VIAL.NEB ONE (13:00)
[2018-03-18] MEDS ORDERED: INFLUENZA VACCINE (for 3y+) 0.5 ML DOSE IMVAC ONE (14:00)
[2018-03-18] MEDS: LEVALBUTEROL 1.25 MG/3 ML NEB NEB SCH ×2 (14:11→19:33)
[2018-03-18] MEDS: ARFORMOTEROL TARTRATE 15 MCG/2 ML VIAL.NEB NEB SCH ×2 (14:11→19:33)
[2018-03-18] MEDS: IPRATROPIUM BROM 0.5MG/2.5ML NEB SCH ×2 (14:12→19:33)
[2018-03-18 16:14] LABS: Arterial Blood Carboxyhemoglob 4.1 % (0-1.5); Blood Gas Oxyhemoglobin 88.4 % (94-97); Blood O2 Saturation 92.8 % (92-98.5)
--- NOTE | 2018-03-18 17:19 | P.HP ---
Certification for Inpatient Patient admitted to: Observation With expected LOS: <2 Midnights Patient will require the following post-hospital care: None Practitioner: I am a practitioner with admitting privileges, knowledge of patient current condition, hospital course, and medical plan of care. Services: Services provided to patient in accordance with Admission requirements found in Title 42 Section 412.3 of the Code of Federal Regulations Patient History Date of Service: 03/18/18 Reason for admission: SOB History of Present Illness: This is a 62-year-old male with significant past medical history of hypertension diabetes COPD who presented to the ED complaining of having some shortness of breath which has been getting worse since past 2 weeks. Patient stated that he has been noticing that his feet on bilateral lower extremity has been swelling and he has been unable to lay flat as well. Patient has had COPD for past 10 years and has never been admitted to the hospital for the COPD. Patient does see a primary care doctor in the area who prescribes him all his medication and his inhalers. Patient however cannot recall which inhibitor he takes at this time. Patient states that he is compliant with medication however sometimes he does forget to take his inhalers. No other complaints to offer at this time. Denies having any fever chills nausea vomiting or any other associated symptoms Allergies levofloxacin [From Levaquin] Allergy (Verified 03/18/18 11:11) Unknown Home Medications: Aspirin 1 tab PO DAILY 03/18/18 Atorvastatin Calcium 1 tab PO BEDTIME 03/18/18 Doxazosin [Cardura] 2 mg PO DAILY 03/18/18 Losartan/Hydrochlorothiazide [Losartan-Hctz 100-25 mg Tab] 1 tab PO DAILY Nebivolol HCl [Bystolic] 1 tab PO DAILY 03/18/18 Sitagliptin Phos/Metformin HCl [Janumet Xr 50-1,000 mg Tablet] 2 tab PO DAILY Tiotropium Br/Olodaterol HCl [Stiolto Respimat Inhal Wil[place]] 1 puff IH DAILY 09/28 - Past Medical/Surgical History Diabetic: Yes -: HTN -: DM II -: COPD -: Hyperlipidemia -: Kidney stone - Social History Smoking Status: Current every day smoker Alcohol use: Yes CD- Drugs: No Caffeine use: Yes Place of Residence: Home Review of Systems 10-point ROS is otherwise unremarkable Physical Examination - Vital Signs Temperature: 97 F Blood Pressure: 137/86 Pulse: 121 Respirations: 20 Pulse Ox (%): 93 - Physical Exam General: Alert, In no apparent distress HEENT: Atraumatic, PERRLA, Mucous membr. moist/pink, EOMI, Sclerae nonicteric Neck: Supple, 2+ carotid pulse no bruit, No LAD, Without JVD or thyroid abnormality Respiratory: Normal air movement, Diminished, Crackles/rales Cardiovascular: Regular rate/rhythm, Normal S1 S2 Gastrointestinal: Normal bowel sounds, No tenderness Musculoskeletal: No tenderness Integumentary: No rashes Neurological: Normal gait, Normal speech, Normal strength at 5/5 x4 extr, Normal tone, Normal affect Lymphatics: No axilla or inguinal lymphadenopathy - Studies Laboratory Data (last 24 hrs) 03/18/18 07:15: WBC 6.9, Hgb 12.2 L, Hct 35.7 L, Plt Count 227 03/18/18 07:15: Sodium 145, Potassium 4.7, BUN 44 H, Creatinine 1.80 H, Glucose 86, Magnesium 2.3, Total Bilirubin 0.2, AST 53 H, ALT 57, Alkaline Phosphatase 180 H Assessment and Plan - Problems (Diagnosis) (1) Acute respiratory failure Current Visit: Yes Status: Acute Plan: Hypercapnic hypoxic acute respiratory most likely secondary to COPD exacerbation -BiPAP at this time. Weaned to nasal cannula as tolerated -pulmonology has been consulted awaiting recommendations at this time -will continue to monitor here closely -duonebs, BiPAP, steroids Qualifiers: Respiratory failure complication: hypoxia and hypercapnia Qualified Code(s) : J96.01 - Acute respiratory failure with hypoxia; J96.02 - Acute respiratory failure with hypercapnia (2) COPD (chronic obstructive pulmonary disease) Current Visit: Yes Status: Chronic Plan: Acute COPD exacerbation most likely secondary to noncompliance with medication and viral illness -Duonebs, steroids, BiPAP -will wean as tolerated to nasal cannula Qualifiers: COPD type: COPD with acute exacerbation Qualified Code(s): J44.1 - Chronic obstructive pulmonary disease with (acute) exacerbation (3) HTN (hypertension) Current Visit: Yes Status: Chronic Qualifiers: Hypertension type: essential hypertension Qualified Code(s): I10 - Essential (primary) hypertension (4) Diabetes Current Visit: Yes Status: Chronic Qualifiers: Diabetes mellitus type: type 2 Diabetes mellitus shirt trimmer insulin use: without fci use Diabetes mellitus complication status: without complication Qualified Code(s): E11.9 - Type 2 diabetes mellitus without complications (5) CHF (congestive heart failure) Current Visit: Yes Status: Chronic Plan: Patient with elevated BNP on the lab work -x-ray negative for congestion -will get an echocardiogram done to evaluate for congestive heart failure at this time Qualifiers: Heart failure type: unspecified Heart failure chronicity: unspecified Qualified Code(s): I50.9 - Heart failure, unspecified Discharge Plan: Home Plan to discharge in: 48 Hours - Advance Directives Does patient have a Living Will: No Does patient have a Durable POA for Healthcare: No - Code Status/Comfort Care Code Status Assessed: Yes Critical Care: No
[2018-03-18] MEDS: ATORVASTATIN 20 MG TAB PO SCH (21:15)
[2018-03-18] MEDS: predniSONE 20 MG TAB PO SCH (21:16)
[2018-03-19] MEDS: IPRATROPIUM BROM 0.5MG/2.5ML NEB SCH ×4 (01:31→20:20)
[2018-03-19] MEDS: LEVALBUTEROL 1.25 MG/3 ML NEB NEB SCH ×4 (01:31→20:20)
[2018-03-19 06:13] LABS: Urine Appearance CLEAR; Urine Bilirubin NEGATIVE (NEG); Urine Blood 1+ (NEG); Urine Color YELLOW; Urine Glucose 1+ (NEG); Urine Protein 3+ (NEG); Urine Specific Gravity 1.025 (1.005-1.030); Urine Urobilinogen 0.2 mg/dL (0.2-1.0)
[2018-03-19 06:16] LABS: Urine Microscopic Reflex ORDER UMIC
[2018-03-19 06:17] LABS: Absolute Lymphocytes (CBC) 0.7 K/uL (0.7-4.9); Absolute Monocytes 0.5 K/uL (0.1-1.3); Absolute Neutrophil 7.6 K/uL (1.8-8.0); Basophils % 0.1 % (0-1.3); Hematocrit 35.8 % (39.6-49.0); MCH 34.1 pg (27.0-35.0); MCV 101.9 fL (80-100); MPV 8.6 fL (7.6-11.3); Monocytes % 5.4 % (3.3-12.3); RBC Red Blood Cell Count 3.52 M/uL (4.33-5.43)
[2018-03-19 06:43] LABS: Albumin 1.8 g/dL (3.4-5.0); Bilirubin Total 0.2 mg/dL (0.2-1.0); Potassium 5.7 mmol/L (3.5-5.1); Protein, Total 6.2 g/dL (6.4-8.2)
[2018-03-19 07:13] LABS: Urine Bacteria 20-50 /HPF (NONE SEEN); Urine Culture Reflex Order REFLEXED; Urine RBC <5 /HPF (NONE SEEN)
[2018-03-19] MEDS: ARFORMOTEROL TARTRATE 15 MCG/2 ML VIAL.NEB NEB SCH ×2 (07:52→20:20)
[2018-03-19 08:09] LABS: Blood Morphology Comment NOT SEEN (NOT SEEN); Platelet Estimate ADEQ; Urine White Blood Cell Casts OK
[2018-03-19] MEDS: NICOTINE 14 MG/PAT TD SCH (08:19)
[2018-03-19] MEDS: ASPIRIN 81 MG CHEWABLE TABLET PO SCH (08:20)
[2018-03-19] MEDS: DOXAZOSIN 2 MG TAB PO SCH (08:20)
[2018-03-19] MEDS: predniSONE 20 MG TAB PO SCH ×2 (08:20→21:21)
[2018-03-19] MEDS: NEBIVOLOL HCL 5 MG TAB PO SCH (08:20)
--- NOTE | 2018-03-19 08:32 | EKG ---
Test Date: 2018-03-18 Test Time: 12:41:38 Machine Crater: KEL MEASUREMENT RESULTS: Intervals: Rate: 122 GA: 136 QRSD: 80 QT: 318 QTc: 453 [place]: P: -90 GA: 136 QRS: 63 T: 63 INTERPRETIVE STATEMENTS: Atrial flutter with 2 to 1 AV block Abnormal ECG Compared to ECG 03/18/2018 07:59:48 Sinus rhythm no longer present Electronically Signed On 03-19-18 08:32:00 GEROPSYCHOLOGIST by Gray Raines
--- NOTE | 2018-03-19 08:50 | P.CNS ---
Date of Consult: 03/19/18 Reason for Consult: Shortness of breath Chief Complaint: SOB History of Present Illness: Patient is 62 years of age with a history of COPD former for pack-a-day smoker has been having progressive dyspnea over the past month denies any fever chills chest pain complaining of a significant cough he recently had a TIA patient is on Chantix and nicotine replacement therapy still short of breath uses Stiolo. No prior history of coronary artery disease he has had kidney stones Allergies levofloxacin [From Levaquin] Allergy (Verified 03/18/18 11:11) Unknown Home Medications: Aspirin 1 tab PO DAILY 03/18/18 Atorvastatin Calcium 1 tab PO BEDTIME 03/18/18 Doxazosin [Cardura] 2 mg PO DAILY 03/18/18 Losartan/Hydrochlorothiazide [Losartan-Hctz 100-25 mg Tab] 1 tab PO DAILY Nebivolol HCl [Bystolic] 1 tab PO DAILY 03/18/18 Sitagliptin Phos/Metformin HCl [Janumet Xr 50-1,000 mg Tablet] 2 tab PO DAILY Tiotropium Br/Olodaterol HCl [Stiolto Respimat Inhal [place]] 1 puff IH DAILY 09/28 - Past Medical/Surgical History Diabetic: Yes -: HTN -: DM II -: COPD -: Hyperlipidemia -: Kidney stone - Social History Smoking Status: Current every day smoker Alcohol use: Yes CD- Drugs: No Caffeine use: Yes Place of Residence: Home Review of Systems General: Weakness Respiratory: Cough, Shortness of Breath Cardiovascular: Edema Physical Examination Temp Pulse Resp BP Pulse Ox 97.8 F 76 18 147/74 H 98 03/19/18 04:00 03/19/18 08:20 03/19/18 04:00 03/19/18 08:20 03/19/18 04:00 General: Oriented x3, Moderate distress Neck: Supple Respiratory: Expiratory wheezes Cardiovascular: Regular rate/rhythm, Normal S1 S2, Edema (Bilateral 2+ edema) - Problems (1) COPD exacerbation Current Visit: Yes Status: Acute Plan: Patient is 62 years of age admitted with progressive dyspnea for the past month most likely he has COPD exacerbation very heavy smoker for more for pack-a-day he does use Stiolot at home. Patient also has hypoxic hypercapnic respiratory failure renal insufficiency proteinuria in the urine chest x-ray shows COPD changes he does not have any short-acting bronchodilators at home agree with present treatment echocardiogram pending
[2018-03-19] MEDS ORDERED: LOSARTAN/HCTZ 50-12.5 PO SCH (09:00)
[2018-03-19] MEDS ORDERED: SOD POLYSTYREN SUL 15 GM/60 ML UCUP PO ONE (12:14)
[2018-03-19] MEDS ORDERED: CALCIUM GLUC 10% INJ 4.65 MEQ in NA CHLORIDE 0.9% 100 ML IV ONE (13:00)
--- NOTE | 2018-03-19 14:15 | P.PN ---
Subjective Date of Service: 03/19/18 Chief Complaint: SOB Subjective: No C/O voiced, Tolerating diet, Improving, Working w/ PT, Doing well Review of Systems 10-point ROS is otherwise unremarkable Physical Examination - Vital Signs Temperature: 96.7 F Blood Pressure: 147/74 Pulse: 76 Respirations: 18 Pulse Ox (%): 98 - Physical Exam General: Alert, In no apparent distress, Obese HEENT: Atraumatic, PERRLA, EOMI Neck: Supple, JVD not distended Respiratory: Normal air movement, Expiratory wheezes, Inspiratory wheezes Cardiovascular: Regular rate/rhythm, Normal S1 S2 Gastrointestinal: Normal bowel sounds, No tenderness Musculoskeletal: No tenderness Integumentary: No rashes Neurological: Normal speech, Normal tone, Normal affect Lymphatics: No axilla or inguinal lymphadenopathy - Studies Medications List Reviewed: Yes Assessment And Plan - Current Problems (Diagnosis) (1) Acute respiratory failure Onset Date: 03/19/18 Current Visit: Yes Status: Acute Plan: Hypercapnic hypoxic acute respiratory most likely secondary to COPD exacerbation -now Weaned to nasal cannula -pulmonology has been consulted. Appreciate [facility] -will continue to monitor here closely -duonebs,oxygen and steroids -Sleep Study as outpt for CONNIE Qualifiers: Respiratory failure complication: hypoxia and hypercapnia Qualified Code(s) : J96.01 - Acute respiratory failure with hypoxia; J96.02 - Acute respiratory failure with hypercapnia (2) COPD (chronic obstructive pulmonary disease) Onset Date: 03/19/18 Current Visit: Yes Status: Chronic Plan: Acute COPD exacerbation most likely secondary to noncompliance with medication and viral illness -Duonebs, steroids, wean to NC -Will monitor for 24 to 48 hrs and Discharge if doing well Qualifiers: COPD type: COPD with acute exacerbation Qualified Code(s): J44.1 - Chronic obstructive pulmonary disease with (acute) exacerbation (3) HTN (hypertension) Onset Date: 03/19/18 Current Visit: Yes Status: Chronic Qualifiers: Hypertension type: essential hypertension Qualified Code(s): I10 - Essential (primary) hypertension (4) Diabetes Onset Date: 03/19/18 Current Visit: Yes Status: Chronic Qualifiers: Diabetes mellitus type: type 2 Diabetes mellitus residential insulin use: without salvage determiner use Diabetes mellitus complication status: without complication Qualified Code(s): E11.9 - Type 2 diabetes mellitus without complications (5) CHF (congestive heart failure) Onset Date: 03/19/18 Current Visit: Yes Status: Chronic Plan: Patient with elevated BNP on the lab work -x-ray negative for congestion -ECHO pending Qualifiers: Heart failure type: unspecified Heart failure chronicity: unspecified Qualified Code(s): I50.9 - Heart failure, unspecified Discharge Plan: Home Plan to discharge in: 48 Hours - Code Status/Comfort Care Code Status Assessed: Yes Critical Care: No
--- NOTE | 2018-03-19 15:22 | ECHO ---
HEIGHT: 5 ft 9 in WEIGHT: 250 lb 0 oz DATE OF STUDY: 03/18/[address]: Violet Everett MD 2-DIMENSIONAL: YES M.MODE: YES DOPPLER: YES COLOR FLOW: YES TDS: YES PORTABLE: NO DEFINITY: NO BUBBLE STUDY: NO DIAGNOSIS: ATRIAL FIBRILLATION WITH RAPID VENTRICULAR RESPONSE CARDIAC HISTORY: CATHERIZATION: SURGERY: PROSTHETIC VALVE: PACEMAKER: MEASUREMENTS (cm) DIASTOLIC (NORMALS) SYSTOLIC (NORMALS) IVSd 1.3 (0.6-1.2) LA Diam 4.1 (1.9-4.0) LVEF >50% LVIDd 4.1 (3.5-5.7) LVIDs 3.2 (2.0-3.5) %FS 22% LVPWd 1.1 (0.6-1.2) Ao Diam 2.6 (2.0-3.7) 2 DIMENSIONAL ASSESSMENT: RIGHT ATRIUM: NORMAL LEFT ATRIUM: DILATED RIGHT VENTRICLE: NORMAL LEFT VENTRICLE: LEFT VENTRICULAR HYPERTROPHY TRICUSPID VALVE: NORMAL MITRAL VALVE: NORMAL PULMONIC VALVE: NORMAL AORTIC VALVE: SCLEROSIS PERICARDIAL EFFUSION: NONE AORTIC ROOT: NORMAL LEFT VENTRICULAR WALL MOTION: NORMAL DOPPLER/COLOR FLOW: MILD TRICUSPID REGURGITATION. COMMENTS: TECHNICALLY DIFFICULT STUDY. MILD TRICUSPID REGURGITATION. NORMAL LEFT VENTRICULAR SIZE AND FUNCTION. AORTIC SCLEROSIS. LEFT VENTRICULAR HYPERTROPHY. LEFT ATRIUM ENLARGEMENT. TECHNOLOGIST: RAAD BIGGS RDCS
[2018-03-19] MEDS: FUROSEMIDE 20 MG/ 2ML VIAL IV SCH (18:23)
[2018-03-19] MEDS: ATORVASTATIN 20 MG TAB PO SCH (21:21)
[2018-03-19] MEDS ORDERED: LORazepam 2 MG/ML VIAL IV ONE (21:56)
--- NOTE | 2018-03-20 00:01 | P.CNS ---
Date of Consult: 03/19/18 Reason for Consult: ALDO/ CKD Requesting Physician: Violet Everett Chief Complaint: SOB History of Present Illness: This is a 62-year-old male with significant past medical history of hypertension diabetes COPD who presented to the ED complaining of having some shortness of breath which has been getting worse since past 2 weeks. Patient stated that he has been noticing that his feet on bilateral lower extremity has been swelling and he has been unable to lay flat as well. Patient has had COPD for past 10 years and has never been admitted to the hospital for the COPD. Patient does see a primary care doctor in the area who prescribes him all his medication and his inhalers. Patient however cannot recall which inhibitor he takes at this time. Patient states that he is compliant with medication however sometimes he does forget to take his inhalers. No other complaints to offer at this time. Denies having any fever chills nausea vomiting or any other associated symptoms 07:14 This 62 yrs old Male presents to ER via Ambulatory with complaints of rn Breathing Difficulty. 07:14 The patient has shortness of breath at rest, with light activity. Onset: The rn symptoms/episode began/occurred 1 week(s) ago. Duration: The symptoms are intermittent. The patient's shortness of breath is aggravated by nothing, is alleviated by nothing. Severity of symptoms: At their worst the symptoms were moderate in the emergency department the symptoms are unchanged. The patient has experienced similar episodes in the past. The patient has not recently seen a physician. Reports 1-2 weeks of increased sob and RICHARDS, + COPD, also reports increased swelling of legs and trouble sleeping flat. Denies NSAIDs. Denies difficulty emptying his bladder. Polyuria. Kidney stone X3. Allergies levofloxacin [From Levaquin] Allergy (Verified 03/18/18 11:11) Unknown Home medications list reviewed: Yes Home Medications: Aspirin 1 tab PO DAILY 03/18/18 Atorvastatin Calcium 1 tab PO BEDTIME 03/18/18 Doxazosin [Cardura] 2 mg PO DAILY 03/18/18 Losartan/Hydrochlorothiazide [Losartan-Hctz 100-25 mg Tab] 1 tab PO DAILY Nebivolol HCl [Bystolic] 1 tab PO DAILY 03/18/18 Sitagliptin Phos/Metformin HCl [Janumet Xr 50-1,000 mg Tablet] 2 tab PO DAILY Tiotropium Br/Olodaterol HCl [Stiolto Respimat Inhal [place]] 1 puff IH DAILY 09/28 - Past Medical/Surgical History Diabetic: Yes -: HTN -: DM II -: COPD -: Hyperlipidemia -: Kidney stone - Social History Smoking Status: Current every day smoker Alcohol use: Yes CD- Drugs: No Caffeine use: Yes Place of Residence: Home Review of Systems 10-point ROS is otherwise unremarkable General: Weakness, Malaise Respiratory: SOB with Excertion Cardiovascular: Edema Genitourinary: Frequency Physical Examination Temp Pulse Resp BP Pulse Ox 97.3 F 84 18 182/84 H 97 03/19/18 20:00 03/19/18 20:00 03/19/18 20:00 03/19/18 20:00 03/19/18 20:00 General: In no apparent distress, Oriented x3, Cooperative HEENT: Atraumatic, Mucous membr. moist/pink Neck: Supple, JVD distended Respiratory: Expiratory wheezes Cardiovascular: Regular rate/rhythm, Edema Gastrointestinal: Soft and benign, Non-distended Musculoskeletal: No clubbing, No contractures, No warmth Integumentary: No rashes, No cyanosis Neurological: Normal speech External genitalia: Edema Blood work reviewed in the chart. Initial serum creatinine 1.8 Imagings Data: MEASUREMENTS (cm) DIASTOLIC (NORMALS) SYSTOLIC (NORMALS) IVSd 1.3 (0.6-1.2) LA Diam 4.1 (1.9-4.0) LVEF >50% LVIDd 4.1 (3.5-5.7) LVIDs 3.2 (2.0-3.5) %FS 22% LVPWd 1.1 (0.6-1.2) Ao Diam 2.6 (2.0-3.7) 2 DIMENSIONAL ASSESSMENT: RIGHT ATRIUM: NORMAL LEFT ATRIUM: DILATED RIGHT VENTRICLE: NORMAL LEFT VENTRICLE: LEFT VENTRICULAR HYPERTROPHY TRICUSPID VALVE: NORMAL MITRAL VALVE: NORMAL PULMONIC VALVE: NORMAL AORTIC VALVE: SCLEROSIS PERICARDIAL EFFUSION: NONE AORTIC ROOT: NORMAL LEFT VENTRICULAR WALL MOTION: NORMAL DOPPLER/COLOR FLOW: MILD TRICUSPID REGURGITATION. COMMENTS: TECHNICALLY DIFFICULT STUDY. MILD TRICUSPID REGURGITATION. NORMAL LEFT VENTRICULAR SIZE AND FUNCTION. AORTIC SCLEROSIS. LEFT VENTRICULAR HYPERTROPHY. LEFT ATRIUM ENLARGEMENT. EXAM DESCRIPTION: RAD - Chest Single View - 03/18/2018 7:20 am CLINICAL HISTORY: Dyspnea, progressive difficulty breathing COMPARISON: October 24 TECHNIQUE: AP portable chest image was obtained 0704 hours . FINDINGS: No peripheral mass or consolidation. Body habitus and portable technique accentuate lung base findings. Medial retrocardiac left base assessment is very limited. Costophrenic angle blunting is present in the patient could have minimal pleural fluid. Heart size is normal with no vascular engorgement. Trachea is midline. No pneumothorax. No acute bony abnormality seen. No acute aortic findings suspected. IMPRESSION: No acute lung parenchymal process seen. Medial retrocardiac left base assessment is very limited. No vascular engorgement or other findings to suspect failure or volume overload. Costophrenic angle blunting is probably artifact of body habitus and portable technique. Minimal pleural fluid is possible. Conclusions/Impression: A/ ALDO Hyperkalemia. CKD III with proteinuria suspicious for nephrotic syndrome. DM II with CKD. HTN with CKD/ CHF. Diastolic CHF, A/C. Hypoalbuminemia. Microcytic anemia. COPD with exacerbation. P/ Continue current POC and Medications. Agree with diuretic. Give IV Albumin. Agree with Kayexalate. Consider a renal ultrasound. Wean steroids as tolerated. No NSAIDs. AM labs. Daily weight. Thank you kindly for the consultation.
[2018-03-20] MEDS ORDERED: ALBUMIN HUMAN 25% 200 ML IV ONE (00:09)
[2018-03-20] MEDS: IPRATROPIUM BROM 0.5MG/2.5ML NEB SCH ×2 (02:33→08:14)
[2018-03-20] MEDS: LEVALBUTEROL 1.25 MG/3 ML NEB NEB SCH ×2 (02:33→08:14)
[2018-03-20 05:38] LABS: Absolute Lymphocytes (CBC) 0.5 K/uL (0.7-4.9); Absolute Monocytes 0.3 K/uL (0.1-1.3); Absolute Neutrophil 9.5 K/uL (1.8-8.0); Basophils % 0.1 % (0-1.3); Hematocrit 34.3 % (39.6-49.0); Lymphocytes % 5.2 % (15.3-44.8); MCH 34.1 pg (27.0-35.0); MCV 101.2 fL (80-100); MPV 8.7 fL (7.6-11.3); Monocytes % 3.1 % (3.3-12.3); RBC Red Blood Cell Count 3.39 M/uL (4.33-5.43)
[2018-03-20 05:52] LABS: Albumin 2.1 g/dL (3.4-5.0); Bilirubin Total 0.2 mg/dL (0.2-1.0); Potassium 5.3 mmol/L (3.5-5.1)
[2018-03-20] MEDS: ARFORMOTEROL TARTRATE 15 MCG/2 ML VIAL.NEB NEB SCH (08:14)
[2018-03-20] MEDS ORDERED: VITAMIN D 5,000 UNIT CAP PO SCH (09:00)
[2018-03-20] MEDS ORDERED: CALCITROL 0.25 MCG CAP PO SCH (09:00)
[2018-03-20 09:13] LABS: Urine Appearance CLEAR; Urine Bilirubin NEGATIVE (NEG); Urine Blood 1+ (NEG); Urine Color YELLOW; Urine Glucose TRACE (NEG); Urine Protein 3+ (NEG); Urine Urobilinogen 0.2 mg/dL (0.2-1.0)
[2018-03-20 09:27] LABS: Urine Bacteria 20-50 /HPF (NONE SEEN); Urine Culture Reflex Order REFLEXED; Urine Mucus 2+ /HPF (NONE SEEN)
[2018-03-20] MEDS: ASPIRIN 81 MG CHEWABLE TABLET PO SCH (09:33)
[2018-03-20] MEDS: predniSONE 20 MG TAB PO SCH (09:33)
[2018-03-20] MEDS: NEBIVOLOL HCL 5 MG TAB PO SCH (09:33)
[2018-03-20] MEDS: NICOTINE 14 MG/PAT TD SCH (09:34)
[2018-03-20] MEDS: FUROSEMIDE 20 MG/ 2ML VIAL IV SCH (09:34)
[2018-03-20] MEDS: DOXAZOSIN 2 MG TAB PO SCH (09:34)
--- NOTE | 2018-03-20 10:29 | P.PN ---
Subjective Date of Service: 03/20/18 Chief Complaint: COPD exacerbation Subjective: Improving (Patient has improved significantly and wants to go home although is still wheezing) Review of Systems Unremarkable Physical Examination - Vital Signs Temperature: 97.3 F Blood Pressure: 157/77 Pulse: 83 Respirations: 16 Pulse Ox (%): 97 - Physical Exam General: Alert, Oriented x3 Respiratory: Expiratory wheezes Cardiovascular: No edema, Normal S1 S2 - Studies Medications List Reviewed: Yes Assessment & Plan - Problems (Diagnosis) (1) COPD exacerbation Onset Date: 03/19/18 Current Visit: Yes Status: Acute Plan: Patient is 62 years of age admitted with COPD exacerbation. I think it will qualify for home O2 continue with his present bronchodilator at home also need a rescue inhaler add low-dose prednisone 10 mg twice a day for 7 days short- acting bronchodilator need workup as an outpatient normal left ventricular ejection fraction he does have renal insufficiency with hyperkalemia contraindication to Edouard inhibitors for now
[2018-03-20] MEDS ORDERED: SOD POLYSTYREN SUL 15 GM/60 ML UCUP PO ONE (11:03)
--- NOTE | 2018-03-20 12:31 | P.DS ---
Admission Date: 03/18/18 Discharge Date: 03/20/18 Disposition: ROUTINE DISCHARGE Discharge Condition: GOOD Reason for Admission: COPD exacerbation Consultations: Nephrology Pulmonology Cardiology - Problems (1) Acute respiratory failure Onset Date: 03/19/18 Current Visit: Yes Status: Acute Qualifiers: Respiratory failure complication: hypoxia and hypercapnia Qualified Code(s) : J96.01 - Acute respiratory failure with hypoxia; J96.02 - Acute respiratory failure with hypercapnia (2) COPD (chronic obstructive pulmonary disease) Onset Date: 03/19/18 Current Visit: Yes Status: Chronic Qualifiers: COPD type: COPD with acute exacerbation Qualified Code(s): J44.1 - Chronic obstructive pulmonary disease with (acute) exacerbation (3) HTN (hypertension) Onset Date: 03/19/18 Current Visit: Yes Status: Chronic Qualifiers: Hypertension type: essential hypertension Qualified Code(s): I10 - Essential (primary) hypertension (4) Diabetes Onset Date: 03/19/18 Current Visit: Yes Status: Chronic Qualifiers: Diabetes mellitus type: type 2 Diabetes mellitus retirement insulin use: without termite treater use Diabetes mellitus complication status: without complication Qualified Code(s): E11.9 - Type 2 diabetes mellitus without complications (5) CHF (congestive heart failure) Onset Date: 03/19/18 Current Visit: Yes Status: Chronic Qualifiers: Heart failure type: unspecified Heart failure chronicity: unspecified Qualified Code(s): I50.9 - Heart failure, unspecified Brief History of Present Illness: This is a 62-year-old male with significant past medical history of hypertension diabetes COPD who presented to the ED complaining of having some shortness of breath which has been getting worse since past 2 weeks. Patient stated that he has been noticing that his feet on bilateral lower extremity has been swelling and he has been unable to lay flat as well. Patient has had COPD for past 10 years and has never been admitted to the hospital for the COPD. Patient does see a primary care doctor in the area who prescribes him all his medication and his inhalers. Patient however cannot recall which inhibitor he takes at this time. Patient states that he is compliant with medication however sometimes he does forget to take his inhalers. No other complaints to offer at this time. Denies having any fever chills nausea vomiting or any other associated symptoms Hospital Course: Overall during the hospital stay patient remained stable Patient was initially admitted to the hospital for acute respiratory failure most likely secondary to hypercapnic COPD exacerbation. Patient was initially placed on BiPAP along with duo nebs with Xopenex and steroids. Patient had marked improvement and was weaned off to nasal cannula. Patient does have COPD for over 10 years and has been a smoker and a drinker for past 20-30 years. Patient was educated extensively on quitting smoking and alcohol abstinence however patient is very noncompliant with medication and diet and lifestyle is very poor as well. Patient does require oxygenation to have adequate saturation however refused oxygen to be set up at home. He states that he will be following up with his primary care doctor and will discuss it with them 1st. Patient was also asked to get a outpatient sleep study for which he also refused and stated that he will get it done if he thinks that he will need it later on in life. Patient currently would like to work and getting oxygen and BiPAP at night time will hinder him from working for a long period of time. Patient was educated extensively on the disease process and the need for home oxygenation along with a CPAP machine for his CONNIE. Patient was also educated extensively on smoking cessation along with alcohol abstinence. While here in the hospital patient also had a workup done for bilateral lower extremity swelling. Echocardiogram was done which was negative for systolic heart failure did have left atrial enlargement. Patient initially was started on Lasix was discontinued and patient was switched over to spironolactone. During this time patient started having acute kidney injury with elevated creatinine nephrology was then consulted who recommended the patient get IV albumin along with maintenance of his chronic disease. Patient was notified about the recommendations and stated that he will again follow up with his primary care doctor nephrology outpatient. Patient was asked that he would want to change his diet and lifestyle. Patient stated that he will make changes that are appropriate for him at home. Patient then was discharged once he was able to ambulate tolerated p.o. and was saturating well on room air. Patient's creatinine at discharge was elevated and was asked to follow up with nephrology for improvement. Lasix was stopped at discharge and patient was given a prescription for spironolactone. Patient was also given prescriptions for inhalers along with steroids to be continued for next 5 days. Patient was asked to follow up with nephrology and pulmonology in about 1-2 days along with cardiology in about 1-2 days post discharge. Due to patient's noncompliance with medication and dietary and lifestyle modification patient has poor prognosis. Vital Signs/Physical Exam: Temp Pulse Resp BP Pulse Ox 97.3 F 83 16 157/77 H 97 03/20/18 10:29 03/20/18 10:29 03/20/18 10:29 03/20/18 10:29 03/20/18 10:29 General: Alert, In no apparent distress HEENT: Atraumatic, PERRLA, EOMI Neck: Supple, JVD not distended Respiratory: Clear to auscultation bilaterally, Normal air movement Cardiovascular: Regular rate/rhythm, Normal S1 S2 Gastrointestinal: Normal bowel sounds, No tenderness Musculoskeletal: No tenderness Integumentary: No rashes Neurological: Normal speech, Normal tone, Normal affect Lymphatics: No axilla or inguinal lymphadenopathy Laboratory Data at Discharge: WBC 10.4 K/uL (4.3-10.9) D 03/20/18 04:46 Hgb 11.6 g/dL (13.6-17.9) L 03/20/18 04:46 Hct 34.3 % (39.6-49.0) L 03/20/18 04:46 Plt Count 202 K/uL (152-406) 03/20/18 04:46 Sodium 142 mmol/L (136-145) 03/20/18 04:46 Potassium 5.3 mmol/L (3.5-5.1) H 03/20/18 04:46 BUN 67 mg/dL (7-18) H 03/20/18 04:46 Creatinine 2.60 mg/dL (0.55-1.3) H 03/20/18 04:46 Glucose 203 mg/dL (74-106) H 03/20/18 04:46 Magnesium 2.3 mg/dL (1.8-2.4) 03/18/18 07:15 Total Bilirubin 0.2 mg/dL (0.2-1.0) 03/20/18 04:46 AST 26 U/L (15-37) 03/20/18 04:46 ALT 44 U/L (12-78) 03/20/18 04:46 Alkaline Phosphatase 136 U/L (45-117) H 03/20/18 04:46 Home Medications: Aspirin 1 tab PO DAILY 03/18/18 Atorvastatin Calcium 1 tab PO BEDTIME 03/18/18 Doxazosin [Cardura*] 2 mg PO DAILY 03/18/18 Losartan/Hydrochlorothiazide [Losartan-Hctz 100-25 mg Tab] 1 tab PO DAILY Nebivolol HCl [Bystolic] 1 tab PO DAILY 03/18/18 Sitagliptin Phos/Metformin HCl [Janumet Xr 50-1,000 mg Tablet] 2 tab PO DAILY Tiotropium Br/Olodaterol HCl [Stiolto Respimat Inhal [place]] 1 puff IH DAILY 09/28 predniSONE [Deltasone*] 10 mg PO BID #14 tab 03/20/18 New Medications: predniSONE [Deltasone*] 10 mg PO BID #14 tab Patient Discharge Instructions: Please f.u with PCP and Dr Marcos in 1 to 2 week post discharge for your COPD exacerbation. -You will need Home oxygen for your chronic COPD. Please f.u with Dr Vazquez in 1 to 2 days post discharge. - You Kidney Function is Elevated and need to be followed up closely with Nephrology. No New medication Diet: Regular Activity: Ad megan Followup: Nir Fong MD [ACTIVE - CAN ADMIT] - (Call for appointment) Lucien Schulz DO [ACTIVE - CAN ADMIT] - (Call for appointment)
[2018-03-20] MEDS ORDERED: D50W 25 GM/50 ML SYRINGE IV PRN (12:35)
[2018-03-20] MEDS ORDERED: GLUCAGON 1 MG/VIAL IM PRN (12:35)
[2018-03-20] MEDS ORDERED: INSULIN -REGULAR HUMAN 50 UNIT/0.5 ML ML SQ SCH (16:30)
--- NOTE | 2018-03-20 20:28 | P.PN ---
Date of Service: 03/20/18 Vital Signs Temp Pulse Resp BP Pulse Ox 97.9 F 83 18 148/72 H 93 03/20/18 12:00 03/20/18 12:00 03/20/18 12:00 03/20/18 12:00 03/20/18 12:00 Microbiology Results 03/18/18 07:15 Blood - Blood Aerobic Blood Culture - Preliminary No growth in 24 hours. 03/18/18 07:15 Blood - Blood Anaerobic Blood Culture - Preliminary No growth in 24 hours. 03/18/18 07:00 Blood - Blood Aerobic Blood Culture - Preliminary No growth in 24 hours. 03/18/18 07:00 Blood - Blood Anaerobic Blood Culture - Preliminary No growth in 24 hours. Assessment/ Plan: Nephrology. Feeling better today. Urine output not great. CPS improved without CP or SOB. +RICHARDS No acute events overnight. Vitals, medications, blood work and imaging reviewed in the chart. General: In no apparent distress, Oriented x3, Cooperative HEENT: Atraumatic, Mucous membr. moist/pink Neck: Supple, JVD distended Respiratory: Expiratory wheezes Cardiovascular: Regular rate/rhythm, Edema Gastrointestinal: Soft and benign, Non-distended Musculoskeletal: No clubbing, No contractures, No warmth Integumentary: No rashes, No cyanosis Neurological: Normal speech External genitalia: Edema Blood work reviewed in the chart. Initial serum creatinine 1.8 Imagings Data: MEASUREMENTS (cm) DIASTOLIC (NORMALS) SYSTOLIC (NORMALS) IVSd 1.3 (0.6-1.2) LA Diam 4.1 (1.9-4.0) LVEF >50% LVIDd 4.1 (3.5-5.7) LVIDs 3.2 (2.0-3.5) %FS 22% LVPWd 1.1 (0.6-1.2) Ao Diam 2.6 (2.0-3.7) 2 DIMENSIONAL ASSESSMENT: RIGHT ATRIUM: NORMAL LEFT ATRIUM: DILATED RIGHT VENTRICLE: NORMAL LEFT VENTRICLE: LEFT VENTRICULAR HYPERTROPHY TRICUSPID VALVE: NORMAL MITRAL VALVE: NORMAL PULMONIC VALVE: NORMAL AORTIC VALVE: SCLEROSIS PERICARDIAL EFFUSION: NONE AORTIC ROOT: NORMAL LEFT VENTRICULAR WALL MOTION: NORMAL DOPPLER/COLOR FLOW: MILD TRICUSPID REGURGITATION. COMMENTS: TECHNICALLY DIFFICULT STUDY. MILD TRICUSPID REGURGITATION. NORMAL LEFT VENTRICULAR SIZE AND FUNCTION. AORTIC SCLEROSIS. LEFT VENTRICULAR HYPERTROPHY. LEFT ATRIUM ENLARGEMENT. EXAM DESCRIPTION: RAD - Chest Single View - 03/18/2018 7:20 am CLINICAL HISTORY: Dyspnea, progressive difficulty breathing COMPARISON: October 24 TECHNIQUE: AP portable chest image was obtained 0704 hours . FINDINGS: No peripheral mass or consolidation. Body habitus and portable technique accentuate lung base findings. Medial retrocardiac left base assessment is very limited. Costophrenic angle blunting is present in the patient could have minimal pleural fluid. Heart size is normal with no vascular engorgement. Trachea is midline. No pneumothorax. No acute bony abnormality seen. No acute aortic findings suspected. IMPRESSION: No acute lung parenchymal process seen. Medial retrocardiac left base assessment is very limited. No vascular engorgement or other findings to suspect failure or volume overload. Costophrenic angle blunting is probably artifact of body habitus and portable technique. Minimal pleural fluid is possible. Conclusions/Impression: A/ ALDO Hyperkalemia. CKD III with proteinuria suspicious for nephrotic syndrome. DM II with CKD. HTN with CKD/ CHF. Diastolic CHF, A/C. Hypoalbuminemia. Microcytic anemia. COPD with exacerbation. P/ Continue current POC and Medications. Agree with diuretic. Give Kayexalate again. Wean steroids as tolerated. No NSAIDs. AM labs. Daily weight.
[2018-03-20] MEDS ORDERED: predniSONE 10 MG TAB PO SCH (21:00)
== END 2018-03-20 13:35 | disposition home or self-care (01) ==
LOC: ER 06:49 → ERHOLD 09:16 → 2ND 10:17
PROVIDERS: ADMIT Family Medicine; ATTEND Family Medicine
DX: J96.02 Acute respiratory failure with hypercapnia (principal); J96.01 Acute respiratory failure with hypoxia; J44.1 Chronic obstructive pulmonary disease with (acute) exacerbation; I13.0 Hypertensive heart and chronic kidney disease with heart failure and stage 1 through stage 4 chronic kidney disease, or unspecified chronic kidney disease; E11.22 Type 2 diabetes mellitus with diabetic chronic kidney disease; N18.3 Chronic kidney disease, stage 3 (moderate); I50.33 Acute on chronic diastolic (congestive) heart failure; N17.9 Acute kidney failure, unspecified; E87.5 Hyperkalemia; E88.09 Other disorders of plasma-protein metabolism, not elsewhere classified; D50.9 Iron deficiency anemia, unspecified; F17.210 Nicotine dependence, cigarettes, uncomplicated
CPT/HCPCS: 36415; 71045; 80048; 80053; 80076; 81001; 81003; 81015; 82043; 82570; 82805; 82962; 83036; 83735; 83880; 84484; 85025; 87040; 87070; 87086; 87088; 87205; 93005; 93306; 94640; 94660; 94760; 96365; 96375; 99285; G0378; J0610; J1940; J2930; J3475; J7512; J7605; P9047